=== PATIENT | female | born 1990 | race Caucasian/White ===

== ENCOUNTER 2017-03-02 10:56 | Emergency (ER) | payer OTHER ==
[~2017-03-02] VITALS: Ht 170.2 cm; Wt 121.1 kg
[~2017-03-02 10:56] MED LIST: ERGOCALCIF50000 UNIT PO; INDERAL40 MG PO; KEFLEX500 MG PO; LISINOPRIL5 MG PO; METFORMIN HCL500 M4 PO; NOHOMEMEDS; ZOFRAN4 MG PO
[2017-03-02 11:52] LABS: HEMATOCRIT 44.9 % (36.0-46.0); MCH 30.3 PG (29.0-34.0); MCV 86.5 FL (83-99); MEAN PLAT.VOLUME 9.3 uM^3 (9.5-12.4); PLATELET COUNT 286 K/uL (156-360); RBC DIS.WIDTH-SD 37.6 % (39-53); RED BLOOD COUNT 5.19 M/uL (3.80-5.20)
[2017-03-02 12:03] LABS: CHLORIDE 109 mEq/L (99-109); SODIUM 140 mEq/L (136-147)
[2017-03-02 12:04] LABS: GLUCOSE 129 mg/dL (70-99)
[2017-03-02 12:06] LABS: ANION GAP 12 MEQ/L (2-14)
[2017-03-02 12:08] LABS: GFR ESTIMATE (CALCULATED) > 59 mL/min/
[2017-03-02 12:09] LABS: UREA NITROGEN (BUN) 14 mg/dL (9-23)
[2017-03-02 12:43] LABS: QUANTITATIVE HCG < 4.0 MIU/ML
[2017-03-02 12:55] LABS: ADD MIUA? YES; BILIRUBIN NEGATIVE; BLOOD LARGE; COLOR YELLOW ((YELLOW)); GLUCOSE (STRIP) NEGATIVE; KETONES NEGATIVE; LEUKOCYTES TRACE; NITRITE NEGATIVE; PROTEIN (STRIP) 30; SPECIFIC GRAVITY 1.031 (1.000-1.030); UROBILINOGEN 0.2 MG/DL (0.2-1.0)
[2017-03-02 13:02] LABS: BACTERIA RARE /HPF; EPITHELIAL CELLS 1+ /HPF; MUCUS TRACE /LPF; RED BLOOD CELLS TNTC /HPF (0-5); UCUL ADDED? YES; WHITE BLOOD CELLS 0-5 /HPF (0-5)
[2017-03-02] MEDS ORDERED: FLOMAX0.4 MG PO (13:23)
[2017-03-02] MEDS ORDERED: ZOFRAN ODT4 MG PO (13:23)
[2017-03-02] MEDS ORDERED: PERCOCET 5/31 TABLET PO (13:23)
[2017-03-02 13:36] VITALS: BP 134/77
== END 2017-03-02 13:38 | disposition home or self-care (01) ==
LOC: EME 10:56
DX: N13.2 Hydronephrosis with renal and ureteral calculous obstruction (principal); I10 Essential (primary) hypertension
CPT/HCPCS: 74176; 80048; 81003; 84702; 85027; 87086; 99281; 99284; J1885; J2405; J7030

== ENCOUNTER → 2017-07-28 | Outpatient (CLI) | payer OTHER ==
[~2017-07-28] MED LIST changes: +FLOMAX0.4 MG PO; +PERCOCET 5/31 TABLET PO; +ZOFRAN ODT4 MG PO
== END | disposition home or self-care (01) ==
LOC: EKG 08:59
DX: Z01.810 Encounter for preprocedural cardiovascular examination (principal); M25.561 Pain in right knee; M23.251 Derangement of posterior horn of lateral meniscus due to old tear or injury, right knee; M23.321 Other meniscus derangements, posterior horn of medial meniscus, right knee; M94.261 Chondromalacia, right knee
CPT/HCPCS: 93005

== ENCOUNTER 2017-08-10 10:23 | Day surgery (SDC) | payer OTHER ==
[~2017-08-10] VITALS: Ht 170.2 cm; Wt 122.0 kg
[~2017-08-10 10:23] MED LIST changes: -LISINOPRIL5 MG PO; +TYLENOL REGULA325 MG PO; +ZESTRIL2.5 MG PO
[2017-08-10 10:54] VITALS: BP 145/87
[2017-08-10 19:10] VITALS: BP 172/104
[2017-08-10 19:40] VITALS: BP 170/90
== END 2017-08-10 19:54 | disposition home or self-care (01) ==
LOC: SDC 10:23 → 2SOUTH 15:28 → SDC 19:54
PROVIDERS: Orthopaedic Surgery
PROC: 0MQN4ZZ Repair Right Knee Bursa and Ligament, Percutaneous Endoscopic Approach (ICD-10-PCS; principal; 2017-08-10)
PROC: 0SBC4ZZ Excision of Right Knee Joint, Percutaneous Endoscopic Approach (ICD-10-PCS; principal; 2017-08-10)
DX: S83.511A Sprain of anterior cruciate ligament of right knee, initial encounter (principal); S83.241A Other tear of medial meniscus, current injury, right knee, initial encounter; S83.281A Other tear of lateral meniscus, current injury, right knee, initial encounter; X58.XXXA Exposure to other specified factors, initial encounter; Y93.39 Activity, other involving climbing, rappelling and jumping off; Y92.007 Garden or yard of unspecified non-institutional (private) residence as the place of occurrence of the external cause; M94.261 Chondromalacia, right knee; I10 Essential (primary) hypertension; E11.9 Type 2 diabetes mellitus without complications; Z79.84 Long term (current) use of oral hypoglycemic drugs
CPT/HCPCS: 81025; 82948; C1713; J0330; J0690; J1170; J2405; J2765; J3010; Q0175